=== PATIENT | male | born 2000 | race Caucasian/White ===

== ENCOUNTER 2024-02-19 12:25 | Emergency (ER) | payer OTHER ==
[~2024-02-19] VITALS: Ht 172.7 cm; Wt 81.8 kg
[2024-02-19 12:31] VITALS: TEMP 98.3
[2024-02-19 13:06] LABS: BASO # 0.1 K/mm3 (0.0-0.2); BASO % 0.8 % (0.0-2.0); EOS # 0.1 K/mm3 (0.0-0.7); EOS % 0.9 % (0.0-4.0); GRAN # 4.7 K/mm3 (1.4-6.5); HEMATOCRIT 42.6 % (42.0-52.0); HEMOGLOBIN 14.2 g/dl (13.5-18.0); LYMPH # 1.4 K/mm3 (1.2-3.4); LYMPH % 21.5 % (20.0-51.0); MEAN CELL VOLUME 89 fl (80.0-100.0); MEAN CORPUSCULAR HEMOGLOBIN 30 pg (27-31); MEAN CORPUSCULAR HGB CONC 33 g/dl (33.0-37.0); MONO # 0.2 K/mm3 (0.1-0.6); MONO % 3.5 % (1.7-9.3); PLATELET COUNT 247 K/mm3 (130-400); RED BLOOD COUNT 4.77 M/mm3 (4.20-5.60); REDCELL DISTRIBUTION WIDTH-CV 11.5 % (11.5-14.5)
[2024-02-19 13:25] LABS: ALANINE AMINOTRANSFERASE 23 U/L (0-55); ALBUMIN 4.5 g/dL (3.5-5.0); ALKALINE PHOSPHATASE 50 U/L (40-150); ANION GAP 11 mmol/L (7-16); AST,SGOT 26 U/L (5-34); BILIRUBIN,TOTAL 0.5 mg/dL (0.2-1.2); BLOOD UREA NITROGEN 10 mg/dL (9-21); CALCIUM 9.4 mg/dL (8.4-10.2); CHLORIDE 107 mEq/L (98-107); CREATININE, serum 1.06 mg/dL (0.72-1.25); GLUCOSE 110 mg/dL (70-99); POTASSIUM 4.2 mEq/L (3.5-4.5); SODIUM 140 mEq/L (136-145); TOTAL PROTEIN 7.1 g/dl (6.2-8.1)
[2024-02-19 13:38] LABS: TROPONIN-I < 0.010 ng/mL (0.00-0.033)
[2024-02-19 14:30] VITALS: BP 119/67; PULSE 70
== END 2024-02-19 14:36 | disposition home or self-care (01) ==
LOC: COL.ER 12:25
PROVIDERS: Physician Assistant
DX: R07.89 Other chest pain (principal)